=== PATIENT | male | born 1940 | race Caucasian/White ===

== ENCOUNTER 2022-08-18 05:40 | Emergency (ER) | payer MEDICARE, SELFPAY ==
--- NOTE | ~2022-08-18 | CT_ITS ---
EXAMINATION: CT brain wo con DATE: 08/18/2022 06:14 INDICATION: Fall with posterior head injury TECHNIQUE: Computed tomography (CT) of the head was performed without intravenous contrast. Sagittal and coronal reconstructions were performed. The mA was adjusted according to patient size. Iterative reconstruction technique was employed. The dose-length product was 681.00 mGy-cm. COMPARISON: None FINDINGS: No fracture. No acute intracranial hemorrhage, acute infarction or abnormal extra axial fluid collect ion. Symmetric prominence of the sulci and ventricles consistent with moderateage-appropriate diffuse cerebral volume loss. No mass/mass effect. Changes of right intraocular lens replacement. Mucosal th ickening in the bilateral maxillary and ethmoid sinuses with mucous partially filling the right maxil ana m sinus and the anterior ethmoid air cells extending to the right frontal sinus. The mastoid air c ells are normal. IMPRESSION: 1. No fracture or acute intracranial process. 2. Likely age-related moderate diffuse volume loss. 2. Sinus disease. Reviewed, dictated and finalized at location [facility].
--- NOTE | ~2022-08-18 | CT_ITS ---
EXAMINATION: CT cervical spine wo con DATE: 08/18/2022 06:14 INDICATION: Fall with head injury. TECHNIQUE: Computed tomography (CT) of the cervical spine was performed without intravenous contrast. Automated exposure control and iterative reconstruction technique were employed. The dose-length pro duct was 232.47 mGy-cm. COMPARISON: None FINDINGS: Thickening of the normal cervical lordosis. Anterior spinal fusion with anterior plate and screw fixa tion at C6-C7. Unfused vertebral body heights are normal. No fracture. Moderate disc height loss with severe left and moderate right uncovertebral osteoarthritis at C4-C5. Mild disc height loss at C2-C3 , C5-C6 and C7-T1. Small posterior disc osteophyte complexes result in mild central canal stenosis at and C5-C6. Multilevel moderate left-sided and severe right-sided cervical facet osteoarthritis. This contributes to moderate neural foraminal stenosis bilaterally at C4-C5 and mild neural foraminal chinyere nosis at a few additional levels on the left than the right. 2 cm right thyroid nodule. Atherosclerot ic calcification is at the bilateral carotid bulbs. Visualized apices of lungs are clear. IMPRESSION: 1. Moderate cervical spondylosis with instrumented C6-C7 anterior spinal fusion. No acute osseous abn ormality. 2. 2 cm right thyroid nodule. Could consider thyroid ultrasound for risk stratification. Reviewed, dictated and finalized at location A. IMPRESSION: 1. Moderate cervical spondylosis with instrumented C6-C7 anterior spinal fusion . No acute osseous abnormality. 2. 2 cm right thyroid nodule. Could consider thyroid ultrasound for risk strati fication.
[2022-08-18 05:40] VITALS: BP 136/66; PULSE 95; RESP 17; TEMP 36.4; O2SAT 99
--- NOTE | 2022-08-18 05:59 | PC.NURSE ---
Patient taken to CT via stretcher.
--- NOTE | 2022-08-18 07:03 | PC.NURSE ---
Bed alarm placed under patient.
--- NOTE | 2022-08-18 07:23 | ED.GENADULT ---
HPI - General Adult General Chief complaint: Fall Stated complaint: fall, laceration Time Seen by Provider: 08/18/22 06:07 History of Present Illness HPI narrative: 82-year-old male presenting to the emergency department after having a ground-level fall. Patient is a new resident at [facility]. As result of the fall patient does have a laceration to his posterior scalp that was bandaged by the [facility]. Patient was found on the floor by [facility] staff. Patient is denying any complaints at this time. Patient is at his normal mental status per [facility]. Related Data Allergies Allergy/AdvReac Type Severity Reaction Status Date / Time No Known Allergies Allergy Unverified 09/02/17 11:51 Review of Systems Review of Systems: ROS unobtainable: Yes unobtainable due to mental status Exam Narrative: APPEARANCE: Well appearing, no pain, no distress, well-nourished. HEAD: normocephalic, posterior scalp laceration, 3 cm. EYES: PERRLA/EOMI, conjunctivae clear. NOSE: Normal no drainage EARS:TMS clear with good light reflex. THROAT: Pharynx clear, no exudate. NECK: Supple. No adenopathy, no masses. RESPIRATORY: Airway patent, respirations nonlabored. Clear to auscultation bilaterally, no rales, rhonchi, wheezing. CARDIOVASCULAR: Regular rate and rhythm without murmurs rubs or gallops. ABDOMINAL: Soft, nontender, nondistended, normal bowel sounds MUSCULOSKELETAL: Moves all extremities. Strength/ROM intact, No edema, No calf tenderness. NEURO: Alert. Cranial nerves II through XII intact. Grossly intact SKIN: Posterior scalp laceration Course Course Emergency Course: 82-year-old male presenting to the ED for evaluation after having a ground-level fall. Patient is normally ANO x1 and this is his current mental status in the ED. Patient is denying any complaints. Patient did have a posterior scalp laceration that was stapled as described in the procedure note. Head and neck CT were ordered to rule out acute injury. CT head and neck were negative for any acute intracranial abnormality and there were no fractures or dislocations. Patient and nursing were updated on the results of the work-up and plan for treatment. Patient was stable at time of transfer back to the custodial facility. Vital Signs Vital signs: Vital Signs Temperature 97.5 F L 08/18/22 05:40 Pulse Rate 95 08/18/22 05:40 Respiratory Rate 17 08/18/22 05:40 Blood Pressure 136/66 08/18/22 05:40 Pulse Oximetry 99 08/18/22 05:40 Oxygen Delivery Room Air 08/18/22 05:40 Temperature 97.5 F L 08/18/22 05:40 Pulse Rate 104 H 08/18/22 10:09 Respiratory Rate 18 08/18/22 10:09 Blood Pressure 142/64 H 08/18/22 10:09 Pulse Oximetry 96 08/18/22 10:09 Oxygen Delivery Room Air 08/18/22 05:40 Procedures Laceration Laceration 1: Time: 07:45 Site: scalp Size (cm): 3 Description: linear Depth: simple, single layer Pre-repair: wound explored and irrigated ====== Skin Level ====== Skin layer closed with: johnie Number of sutures: 5 Technique: simple, interrupted ====== Subcutaneous Layer ====== ====== Muscle Layer ====== ====== Tendon Layer ====== Medical Decision Making Vital Signs Vital Signs: Vital Signs Temperature 97.5 F L 08/18/22 05:40 Pulse Rate 95 08/18/22 05:40 Respiratory Rate 17 08/18/22 05:40 Blood Pressure 136/66 08/18/22 05:40 Pulse Oximetry 99 08/18/22 05:40 Oxygen Delivery Room Air 08/18/22 05:40 Temperature 97.5 F L 08/18/22 05:40 Pulse Rate 104 H 08/18/22 10:09 Respiratory Rate 18 08/18/22 10:09 Blood Pressure 142/64 H 08/18/22 10:09 Pulse Oximetry 96 08/18/22 10:09 Oxygen Delivery Room Air 08/18/22 05:40 Imaging Data Radiologist's impression: Impressions Head CT 08/18/22 08:40 IMPRESSION: 1. No fracture or acute intracranial process. 2. Likely age-related
[2022-08-18 07:35] VITALS: BP 134/84; PULSE 103; RESP 18; O2SAT 96
[2022-08-18 08:46] VITALS: BP 146/68; PULSE 103; RESP 18; O2SAT 98
--- NOTE | 2022-08-18 09:17 | PC.NURSE ---
[facility] accepted return to [facility] in [place] ETA 30min
[2022-08-18 10:09] VITALS: BP 142/64; PULSE 104; RESP 18; O2SAT 96
== END 2022-08-18 09:09 ==
PROVIDERS: Emergency Provider Emergency Medicine; PCP Family Medicine
DX: S01.01XA Laceration without foreign body of scalp, initial encounter (principal); W19.XXXA Unspecified fall, initial encounter; Y92.129 Unspecified place in nursing home as the place of occurrence of the external cause
CPT/HCPCS: 12002; 70450; 72125; 99284

== ENCOUNTER 2022-09-06 08:29 | Emergency (ER) | payer MEDICARE, SELFPAY ==
--- NOTE | ~2022-09-06 | CT_ITS ---
EXAMINATION: CT brain wo con DATE: 09/06/2022 09:00 INDICATION: Seizure. Parkinson's disease TECHNIQUE: Computed tomographic angiography (CTA) of the head was performed without and with 100 mL O mnipaque-350 intravenous contrast. Exam dose: 756.67 mGy-cm total exam DLP. Volume-rendered and ma ximum intensity projection 3D reconstructions of the intracranial arteries were created by the techno logist on a separate workstation. COMPARISON: 08/18/2022 CT brain FINDINGS: There is extensive streak artifact from tooth fillings, obscuring the lower posterior fossa and there is mild motion artifact. There is central and cortical cerebral atrophy. No intracranial mass lesion or hemorrhage or cerebrov ascular accident, midline shift or mass effect or subdural or epidural hematoma is detected. There is a fluid level in the right maxillary sinus, mild adnexa sinus mucoperiosteal thickening. The re is some soft tissue thickening of the ethmoid septae, right greater than left. Mastoid air cells a re unremarkable. No skull fracture or bone destruction is detected. IMPRESSION: Limited examination; no acute intracranial finding Right maxillary sinus fluid level Mild mucosal periosteal thickening of the right maxillary sinus and bilateral ethmoid air cells Reviewed, dictated and finalized at [facility]. Reviewed, dictated and finalized at location B. IMPRESSION: Limited examination; no acute intracranial finding Right maxillary sinus fluid level Mild mucosal periosteal thickening of the right maxillary sinus and bilateral e thmoid air cells
--- NOTE | ~2022-09-06 | XR_ITS ---
XR chest 2V DATE: 09/06/2022 09:05 INDICATION: Seizure TECHNIQUE: AP and lateral views COMPARISON: 12/04/2015 PA and lateral chest FINDINGS: Status post sternotomy and coronary bypass graft surgery. Borderline heart size. Calcificat ion of the thoracic aorta. No hilar or mediastinal enlargement. No pulmonary infiltrate or consolidation, pleural effusion or pulmonary vascular congestion or pneumo thorax. Status post lower anterior cervical spine surgical fusion. Degenerative spurring of the thoracic spine. IMPRESSION: No active pulmonary disease Reviewed, dictated and finalized at location B. IMPRESSION: No active pulmonary disease
[2022-09-06 08:40] VITALS: BP 137/76; PULSE 81; RESP 14; TEMP 36.8; O2SAT 100
[2022-09-06 08:57] VITALS: O2SAT 99
[2022-09-06 08:57] LABS: Basophils Percent Auto 0.4 % (0.2-1.2); Eosinophils Absolute Auto 0.1 K/mm3 (0-0.3); Hematocrit 34.9 % (42.0-52.0); Hemoglobin 11.7 g/dL (14.0-18.0); Immature Granulocyte Absolute 0.02 K/mm3 (0.00-0.031); Immature Granulocyte Percent A 0.4 % (0-0.5); Lymphocytes Absolute Auto 0.66 K/mm3 (0.9-3.2); Lymphocytes Percent Auto 12.6 % (18.3-44.2); Mean Corpuscular HGB Conc 33.5 g/dl (32-36); Mean Corpuscular Volume 92.3 fl (80-100); Mean Platelet Volume 8.9 fl (7.4-10.4); Monocytes Absolute Auto 0.5 K/mm3 (0.1-0.6); Monocytes Percent Auto 8.8 % (2.6-8.5); Neutrophils Percent Auto 76.8 % (45.5-73.1); Platelet Count Result 150 k/mm3 (150-375); Red Blood Count 3.78 M/mm3 (4.6-6.20); Red Cell Distribution Width 12.7 % (11.5-14.5); White Blood Count 5.3 K/mm3 (4.5-10.0)
[2022-09-06 09:06] LABS: Alanine Aminotransferase 9 U/L (6-50); Albumin Level 3.7 g/dL (3.5-5.1); Alkaline Phosphatase 92 U/L (38-126); Anion Gap 6 mmol/L (8-16); Aspartate Amino Transferase 20 U/L (17-59); Bilirubin,Total 0.6 mg/dL (0.2-1.3); Blood Urea Nitrogen 28 mg/dL (9-20); Calcium 8.4 mg/dL (8.4-10.2); Carbon Dioxide 31 mmol/L (22-30); Chloride 103 mmol/L (98-107); Estimated CRCL calculation 43 ml/min; Estimated Glomerular Filt Rate 53; Glucose 160 mg/dL (65-110); INR 1.1; Potassium 3.9 mmol/L (3.4-5.0); Prothrombin Time 13.7 Seconds (11.1-14.7); Sodium 140 mmol/L (137-145)
[2022-09-06 09:07] LABS: Ethanol < 10 mg/dL (<10); Partial Thromboplastin Time 28.6 SECONDS (22.3-36.8)
[2022-09-06 09:16] VITALS: BP 140/75; BP 162/55; PULSE 89; PULSE 95
[2022-09-06] MEDS: SODIUM CHLORIDE 0.9% IV 1,000 ML 999 ML IV CONT (09:19)
[2022-09-06 09:43] LABS: Amphetamine Screen Urine Negative (Negative); Barbiturate Screen Urine Negative (Negative); Benzodiazepines Screen Urine Negative (Negative); Cannabinoid Screen Urine Negative (Negative); Cocaine Screen Urine Negative (Negative); Methadone Screen Urine Negative (Negative); Opiate Screen Urine Negative (Negative); Phencyclidine Screen Urine Negative (Negative)
[2022-09-06 09:56] LABS: Appearance Urine Clear (Clear); Bacteria Urine 4+ /hpf; Bilirubin Urine Negative (Negative); Blood Urine Negative (Negative); Color Urine Yellow (Yellow); Glucose Urine UA Negative (Negative); Ketones Urine Trace mg/dL (Negative); Leukocyte Esterase Ur 1+ LEU/UL (Negative); Need Manual Microscopic Reviewed; Nitrate Urine Negative (Negative); Non Pathogenic Casts 0-2; Protein Urine Trace mg/dL (Negative); RBC Urine 0-2 /hpf (0-2); Squamous Epithelial Cell Urine None seen /hpf (Few)
[2022-09-06 09:58] LABS: Add Urine Microscopic? YES
[2022-09-06 10:35] VITALS: BP 146/73; PULSE 99; RESP 14; O2SAT 99
--- NOTE | 2022-09-06 11:27 | ED.SEIZURE ---
HPI - Seizure General Chief Complaint: Seizure Stated Complaint: Seizure Time Seen by Provider: 09/06/22 08:35 History of Present Illness HPI Narrative: Patient is an 82-year-old male with history of Parkinson's who presents ER after having a witnessed seizure at his custodial. Apparently he was in his wheelchair and had a generalized tonic-clonic seizure that lasted 15 seconds. Patient has no previous history of seizure. Patient is oriented x2 at baseline and cannot provide a history. History is provided by EMS and custodial staff via phone call. Related Data Allergies Allergy/AdvReac Type Severity Reaction Status Date / Time No Known Allergies Allergy Unverified 08/19/22 07:35 Review of Systems Review of Systems: ROS unobtainable: Yes unobtainable due to mental status PMFSH Past Medical History Medical History (Updated 09/06/22 @ 17:52 by Kareem Gallagher MD) Coronary artery disease Dementia Diabetes Hypercholesterolemia Hypertension Parkinsons disease Surgical History Surgical History (Updated 09/06/22 @ 17:52 by Kareem Gallagher MD) History of coronary artery bypass graft History of tonsillectomy Exam Narrative: GENERAL: Chronically ill-appearing, well-nourished, and in no acute distress. HEAD: Normocephalic, atraumatic. EYES: PERRL and EOMI. ENT: Mucous membranes moist. CHEST: Clear to auscultation. No respiratory distress. HEART: Regular rate and rhythm. Normal peripheral pulses. ABDOMEN: Soft, nontender, nondistended. EXTREMITIES: Normal range of motion. No edema. SKIN: Warm, dry, no rash. NEURO: Mildly tremulous. Alert and oriented x2. PSYCH: Normal mood and affect. Course Course Emergency Course: I discussed the case with Dr. Verdin with neurology. She does not recommend any antiepileptics at this time but would recommend them if he has a second seizure. She does recommend outpatient EEG and MRI for further evaluation. Dr. Cardenas the on-call physician for [facility] has been alerted to this treatment plan is verbalized understanding and would like these recommendations to be reflected in the discharge paperwork. Patient will also be started on antibiotic for very mild UTI. Vital Signs Vital signs: Vital Signs Temperature 98.3 F 09/06/22 08:40 Pulse Rate 81 09/06/22 08:40 Respiratory Rate 14 09/06/22 08:40 Blood Pressure 137/76 09/06/22 08:40 Pulse Oximetry 100 09/06/22 08:40 Oxygen Delivery Room Air 09/06/22 08:40 Temperature 98.3 F 09/06/22 08:40 Pulse Rate 92 09/06/22 13:29 Respiratory Rate 18 09/06/22 13:29 Blood Pressure 145/81 H 09/06/22 13:29 Pulse Oximetry 99 09/06/22 13:29 Oxygen Delivery Room Air 09/06/22 08:57 MDM - Seizure Lab Data 09/06/22 08:51 09/06/22 08:51 Labs: Lab Results 09/06/22 09/06/22 09/06/22 Range/Units 08:51 08:51 08:51 WBC 5.3 (4.5-10.0) K/mm3 RBC 3.78 L (4.6-6.20) M/mm3 Hgb 11.7 L (14.0-18.0) g/dL Hct 34.9 L (42.0-52.0) % MCV 92.3 (80-100) fl MCH 31.0 (26-34) pg MCHC 33.5 (32-36) g/dl RDW 12.7 (11.5-14.5) % Plt Count 150 (150-375) k/mm3 MPV 8.9 (7.4-10.4) fl Immature Gran % (Auto) 0.4 (0-0.5) % Neut % (Auto) 76.8 H (45.5-73.1) % Lymph % (Auto) 12.6 L (18.3-44.2) % [place] % (Auto) 8.8 H (2.6-8.5) % Eos % (Auto) 1.0 (0-4.4) % Baso % (Auto) 0.4 (0.2-1.2) % Lymph # (Auto) 0.66 L (0.9-3.2) K/mm3 [place] # (Auto) 0.5 (0.1-0.6) K/mm3 Eos # (Auto) 0.1 (0-0.3) K/mm3 Baso # (Auto) 0.0 (0.0-0.1) K/mm3 Abs Immat Gran (auto) 0.02 (0.00-0.031) K/mm3 Absolute Neuts (auto) 4.0 (1.3-6.7) K/mm3 Absolute Nucleated RBC 0.0 (0.0-0.012) K/mm3 Nucleated RBC % 0.0 (0.0-0.2) % PT 13.7 (11.1-14.7) Seconds INR 1.1 APTT 28.6 (22.3-36.8) SECONDS Sodium 140 (137-145) mmol/L Potassium 3.9 (3.4-5.0) mmol/L Chloride 103 (98-107) mmol/L
[2022-09-06 11:37] VITALS: BP 138/97; PULSE 87; RESP 20; O2SAT 98
[2022-09-06 13:29] VITALS: BP 145/81; PULSE 92; RESP 18; O2SAT 99
== END 2022-09-06 13:32 | disposition home or self-care (01) ==
PROVIDERS: Emergency Provider Emergency Medicine; PCP Family Medicine
DX: R56.9 Unspecified convulsions (principal); N39.0 Urinary tract infection, site not specified; I25.10 Atherosclerotic heart disease of native coronary artery without angina pectoris; G20 Parkinson's disease; F02.80 Dementia in other diseases classified elsewhere, unspecified severity, without behavioral disturbance, psychotic disturbance, mood disturbance, and anxiety; E11.9 Type 2 diabetes mellitus without complications; I10 Essential (primary) hypertension; E78.5 Hyperlipidemia, unspecified
CPT/HCPCS: 36415; 70450; 71046; 80053; 80307; 81001; 85025; 85610; 85730; 87086; 96360; 99284; J7030